=== PATIENT | female | born 1985 | race African-American/Black ===

== ENCOUNTER 2018-09-10 11:19 | Emergency (ER) | payer OTHER ==
[~2018-09-10] VITALS: Ht 162.6 cm; Wt 62.6 kg
[~2018-09-10 11:19] MED LIST: ACYCLOVIR; ACYCLOVIR 400400 MG PO; AMOXICILLIN 50500 M1 PO; DIFLUCAN150 MG PO; DOXYCYCLINE 10100 MG PO; FLAGYL500 MG PO; FLONASE 0.05%50 MCG NASAL; GUAIFENESIN-CO118 ML PO; IBUPROFEN 600600 M1 PO; IBUPROFEN 800800 M1 PO; NAPROSYN500 MG PO; NORCO 5-325 TA1 EACH PO; PYRIDIUM200 MG PO; ZOFRAN4 MG PO; ZPAK PO
[2018-09-10 11:56] LABS: ABSOLUTE NEUTROPHILS 5.3 thou/uL (1.4-8.2); BASOPHILS 0.4 % (0.0-2.0); EOSINOPHILS 0.2 % (0.0-3.0); HEMATOCRIT 45.6 % (37.0-47.0); HEMOGLOBIN 14.6 gm/dL (12.0-15.0); LYMPHOCYTES 15.6 % (24.0-44.0); MCV 74.8 fL (80.0-100.0); MONOCYTES 5.4 % (1.0-8.0); PLATELET COUNT 234 thou/uL (150-400); POLYS 78.4 % (36.0-66.0); WBC 6.7 thou/uL (4.0-11.0)
[2018-09-10 12:05] LABS: CALCIUM 9.1 mg/dL (8.5-10.1); POTASSIUM 3.5 mmol/L (3.5-5.1)
[2018-09-10 12:09] LABS: ALBUMIN 4.1 g/dL (3.4-5.0); TOTAL BILIRUBIN 0.4 mg/dL (<0.1-1.0); TOTAL PROTEIN 8.5 g/dL (6.4-8.2)
[2018-09-10 12:27] LABS: URINE BILIRUBIN NEGATIVE (Negative); URINE BLOOD NEGATIVE (Negative); URINE CLARITY CLEAR; URINE COLOR YELLOW; URINE GLUCOSE-RANDOM* NEGATIVE (Negative); URINE KETONES NEGATIVE (Negative); URINE LEUKOCYTES NEGATIVE (Negative); URINE NITRITE NEGATIVE (Negative); URINE PROTEIN (DIPSTICK) TRACE (Negative); URINE SPECIFIC GRAVITY 1.015 (1.005-1.035)
[2018-09-10] MEDS ORDERED: ZOFRAN ODT4 MG PO (13:06)
[2018-09-10] MEDS ORDERED: BENTYL 10 MG CA10 M1 PO (13:06)
[2018-09-10 13:16] VITALS: BP 116/78
== END 2018-09-10 13:25 | disposition home or self-care (01) ==
LOC: ER 11:19
PROVIDERS: Physician Assistant
DX: S80.02XA Contusion of left knee, initial encounter (principal); K52.9 Noninfective gastroenteritis and colitis, unspecified; Z91.030 Bee allergy status; W19.XXXA Unspecified fall, initial encounter; Y93.89 Activity, other specified; Y92.89 Other specified places as the place of occurrence of the external cause; Y99.8 Other external cause status

== ENCOUNTER 2019-11-08 08:40 | Emergency (ER) | payer OTHER ==
[~2019-11-08] VITALS: Ht 162.6 cm; Wt 63.5 kg
[~2019-11-08 08:40] MED LIST changes: +BENTYL 10 MG CA10 M1 PO; +ZOFRAN ODT4 MG PO
[2019-11-08 09:15] VITALS: BP 128/72
== END 2019-11-08 09:15 | disposition short-term general hospital (02) ==
LOC: ER 08:40
DX: O62.1 Secondary uterine inertia (principal); Z91.030 Bee allergy status